=== PATIENT | male | born 1980 | race Two or more races ===

== ENCOUNTER 2023-12-20 13:18 | Emergency (ER) | payer OTHER ==
[~2023-12-20] VITALS: Ht 170.2 cm; Wt 113.6 kg
[2023-12-20 13:20] VITALS: BP 139/78; PULSE 62; RESP 18; TEMP 98.3
[2023-12-20] MEDS: PROPARACAINE HCL 0.5% 15 ML OPHTHALMIC SOLUTION OS ONE (14:38)
[2023-12-20] MEDS: FLUORESCEIN SODIUM 1 MG STRIP OS ONE (14:38)
[2023-12-20] MEDS ORDERED: IBUP-1492 PO (15:12)
[2023-12-20] MEDS ORDERED: CIPR2.5D17 OS (15:12)
[2023-12-20] MEDS: ACETAMINOPHEN 500 MG TABLET PO ONE (15:25)
[2023-12-20] MEDS: IBUPROFEN 600 MG TABLET PO ONE (15:25)
[2023-12-20] MEDS: CIPROFLOXACIN HCL 0.3% 2.5 ML OPHTHALMIC SOLUTION OS ONE (15:26)
== END 2023-12-20 15:42 | disposition home or self-care (01) ==
LOC: EMS 13:18
DX: T15.02XA Foreign body in cornea, left eye, initial encounter (principal); E11.9 Type 2 diabetes mellitus without complications; I10 Essential (primary) hypertension; X58.XXXA Exposure to other specified factors, initial encounter; Y93.89 Activity, other specified; Y92.89 Other specified places as the place of occurrence of the external cause; Y99.8 Other external cause status
CPT/HCPCS: 65222; 99284; Z7502; Z7610